=== PATIENT | female | born 1985 | race Caucasian/White ===

== ENCOUNTER → 2016-08-18 | Outpatient (CLI) | payer BC ==
--- NOTE | 2016-08-19 04:41 | REP ---
Clinical: Anatomical evaluation. Comparison: 05/21/2016 . Findings: Examination demonstrates a single live intrauterine in breech presentation. motion is identified by technologist. Placenta is noted anteriorly and grade one without evidence for placenta previa or abruption. Amniotic fluid volume is normal. Cervix measures 4.5 cm in length and appears closed. No evidence for nuchal cord. Gestational age by LMP 20 weeks 1 day with FELIZ 01/04/2017 . Gestational age by current measurements 20 weeks 5 days with FELIZ 12/31/2016 . FHR equals 163 beats per minute. BPD 4.9 cm 20 weeks 6 days HC 18.2 cm 20 weeks 4 days AC 15.9 cm 21 weeks 0 days FL 3.3 cm 20 weeks 3 days HL 3.4 cm 21 weeks 5 days HC/AC ratio 1.15 Estimated weight 375 grams grams ( 70th percentile). Anatomical assessment demonstrates normal structures including cranium, choroid plexus, cavum, cerebellum/posterior fossa, lungs, diaphragm, stomach, cord insertion/three-vessel cord, kidneys/bladder, spine, and extremities. Impression: 1. Single live intrauterine in breech presentation demonstrating appropriate interval growth. 2. Limited evaluation of the facial features and heart/ventricular outflow tracts may warrant reevaluation. Remainder of the anatomical assessment is complete and normal. Signed by Danny Mosher MD 08/19/2016 04:33 A
== END ==
LOC: M RAD 12:34
PROVIDERS: ATTEND Obstetrics & Gynecology
DX: Z34.82 Encounter for supervision of other normal pregnancy, second trimester (principal); Z36 Encounter for antenatal screening of mother; Z3A.20 20 weeks gestation of pregnancy

== ENCOUNTER → 2016-09-10 | Outpatient (CLI) | payer BC ==
--- NOTE | 2016-09-10 16:20 | REP ---
Obstetric ultrasound for anatomy: There is a single intrauterine gestation in a breech presentation. There is movement and cardiac activity. The heart rate is 153 beats per minute. The placenta is anterior. There is no placenta previa or abruptio. The placenta demonstrates grade 1 maturity. The amniotic fluid volume subjectively is normal. The cervix is 3.2 cm length. By the ultrasound today the gestational age is 24 weeks 4 days. FEILZ of 12/27/2016. By the first ultrasound during this gestation the gestational age is 23 weeks 6 days and by LMP and gestational age is 23-week 6 days. weight is 745 grams (1 pound, 10 ounces). This is the 92nd percentile for 23 weeks 3 days. The following anatomic structures are identified and are unremarkable: Cranium, choroid plexus, cavum, intracranial lateral ventricles, cerebellum, face, facial profile, upper lip, lungs, four-chamber heart, cardiac right and left ventricular outflow tracts, diaphragm, stomach, cord insertion, three-vessel cord, kidneys, bladder, spine and upper lower extremities. No anomalies are identified. Signed by Timothy Brewer MD 09/10/2016 04:12 P
== END ==
LOC: M RAD 13:55
PROVIDERS: ATTEND Obstetrics & Gynecology
DX: Z34.02 Encounter for supervision of normal first pregnancy, second trimester (principal); Z36 Encounter for antenatal screening of mother; Z3A.24 24 weeks gestation of pregnancy

== ENCOUNTER → 2016-10-01 | Outpatient (CLI) | payer BC ==
[2016-10-01 18:31] LABS: MEAN CORPUSCULAR HEMOGLOBIN 31.3 pg (27.0-33.0); MEAN CORPUSCULAR HGB CONC 34.8 g/dl (32.0-36.5); MEAN CORPUSCULAR VOLUME 89.7 fl (80.0-96.0); RED CELL DISTRIBUTION WIDTH 12.2 % (11.5-14.5); WHITE BLOOD COUNT 9.9 K/mm3 (4.0-10.0)
== END ==
LOC: M LAB 14:48
PROVIDERS: ATTEND Obstetrics & Gynecology
DX: Z34.02 Encounter for supervision of normal first pregnancy, second trimester (principal); Z36 Encounter for antenatal screening of mother

== ENCOUNTER → 2016-10-14 | Outpatient (CLI) | payer BC | LOC: M LAB 07:49 | PROVIDERS: ATTEND Obstetrics & Gynecology | DX: R73.02 Impaired glucose tolerance (oral) (principal) ==

== ENCOUNTER → 2016-12-08 | Outpatient (REF) | payer BC ==
[~2016-12-08] MED LIST: MOTR200T44 PO; PRENTAB9 PO; TYLE325T5 PO
== END ==
LOC: M LAB REF 16:33
PROVIDERS: ATTEND Obstetrics & Gynecology
DX: O24.410 Gestational diabetes mellitus in pregnancy, diet controlled (principal); Z3A.36 36 weeks gestation of pregnancy

== ENCOUNTER → 2016-12-15 | Outpatient (CLI) | payer BC ==
--- NOTE | 2016-12-16 00:50 | REP ---
Clinical: Growth evaluation. Comparison: 09/10/2016 . Findings: Examination demonstrates a single live intrauterine in cephalic presentation. motion is identified by technologist. Placenta is noted anteriorly and grade one without evidence for placenta previa or abruption. Amniotic fluid volume is normal. No evidence for nuchal cord. Gestational age by LMP 37 weeks 1 day with FELIZ 01/04/2017 . Gestational age by current measurements 38 weeks 4 days with FELIZ 12/25/2016 . FHR equals 144 beats per minute. BPD 9.3 cm 37 weeks 5 days HC 34.2 cm 39 weeks 3 days AC 35.8 cm 39 weeks 5 days FL 7.4 cm 37 weeks 6 days HL 6.5 cm 38 weeks 0 days HC/AC ratio 0.96 Estimated weight 3671 grams ( 88th percentile). Amniotic fluid index equals 9.7 cm (7.5 - 24.4). Impression: Single live advanced gestation in cephalic presentation assuring appropriate interval growth. No gross abnormalities are identified. Signed by Danny Mosher MD 12/16/2016 12:41 A
== END ==
LOC: M RAD 14:23
PROVIDERS: ATTEND Obstetrics & Gynecology
DX: O09.893 Supervision of other high risk pregnancies, third trimester (principal); O24.410 Gestational diabetes mellitus in pregnancy, diet controlled; Z3A.37 37 weeks gestation of pregnancy

== ENCOUNTER 2016-12-29 18:43 | Inpatient (IN) | payer BC ==
[2016-12-29] VITALS (29 sets, daily range): BP systolic 99–139; BP diastolic 51–74
[~2016-12-29] VITALS: Ht 154.9 cm; Wt 68.0 kg
[2016-12-29] MEDS ORDERED: PRENTAB9 PO (18:54)
[2016-12-29] MEDS ORDERED: LR 1,000 ML IV SCH (19:26)
[2016-12-29] MEDS ORDERED: LACTATED RINGER'S 1000 ML IV STA (19:26)
[2016-12-29] MEDS ORDERED: ONDANSETRON 4MG/2ML VIAL (J2405) IV ONE (19:30)
--- NOTE | 2016-12-29 20:10 | HPEPDOC ---
Obstetrical History & Physical General Date of Admission Dec 29, 2016 at 18:43 Primary Care Physician: NALINI MORSE CNM History of Present Illness Patient is a 31-year-old female who is a at 39 weeks 1 day with an FELIZ of 01/04/2017 based off her LMP and consistent with her first trimester ultrasound. She initiated care in her first trimester at [facility]. Her has been complicated by gestational diabetes, does been diet controlled. She presents to labor and delivery with complaints of contractions and nausea and vomiting. Her contractions started at 9 AM this morning and her nausea and vomiting started at 4 PM. She reports bloody show and active movement. She denies leaking of fluid. Chief Complaint: Contractions, term, Active Labor, Nausea and vomiting Information Provided By: Patient Age: 31 : 1 Livin Care Care: Good Care Number of Visits: 13 Dating Final EDC: Jan 04, 2017 Final EDC by: LMP LMP: Mar 30, 2016 EGA at Admission: 39.1 Antepartum Course Diagnos(e)s A1 GDM Height (inches): 61 Pre- weight (lbs.): 135 Admission Weight (lbs.): 160 Change in Weight (lbs.): 25 Past Medical History Past Obstetrical History : Past Obstetrical History: Primgravida [employer] TECHNICIAN History: Abnormal Pap, Other (HSG 02/19/16) Past Medical History Medical History Varicella as a child Surgical History: [place] teeth, Other (leep) Family History Significant Family History: Cancer (breast), Hypertension, Other (thyroid disease) Social History Social history Dental assistant manager retail Marital Status: Family situation: Spouse/partner home Psychosocial History: No pertinent psych hx * Smoker: non-smoker Alcohol: Denies Drugs: denies Abuse Violence Screening Have you been hit/kicked/slapp: No Have you been sexually assault: No Allergies Coded Allergies: No Known Allergies (Unverified , 12/29/16) Medications Scheduled Multivitamins/ ( 27-0.8 mg) 1 Tab Tab, 1 TAB PO DAILY Physical Examination Physical Examination GENERAL: Alert and oriented times three. BREAST: . ABDOMEN: Gravid and non-tender to touch. Palpation mild. FETUS: Is vertex (VTX) by sterile vaginal examination (SVE), fetus is vertex ( VTX) by Adalberto. EFW via Adalberto's is 3900 grams. HEART RATE: Regular rate and rhythm. LUNGS: Clear to auscultation (CTA). EXTREMITIES: Generalized edema noted bilaterally. Vital Signs/I&O Vital Signs Date Time Temp Pulse Resp B/P (MAP) Pulse Ox O2 Delivery O2 Flow Rate FiO2 12/29/16 19:03 99.0 76 20 122/70 (87) Room Air Laboratory Data 24H LABS Laboratory Tests 2 12/29/16 18:55: Serology Scanned Report Hepatitis B Testing Urine Culture: No Growth Pertinent Laboratoy Data Blood Type: A- RBC Antibody Screen: Negative HIV: Negative Hepatitis B: Negative Rapid Plasma Reagin: Nonreactive Rubella: Immune Chlamydia/Gonorrhea: Negative Group B Streptococcus: Negative Quad Screen Test: Declined Glucose Tolerance Test: 150 Anatomy Ultrasound Ultrasound Date: Dec 15, 2016 Normal Anatomy: Yes Placenta Previa: No Estimated Weight (grams): 3671 Vaginal Examination Dilation: 4 cm Effacement: Other (100%) Station: -2 Presentation: Cephalic presentation Position: Vertex (occiput) Assessment Heart Rate (FHR): 135 Variability: Moderate Accelerations: Positive Decelerations: None Tocometer Contractions: Yes Frequency: other (5 to 7 minutes) Strength: palpated as moderate Multi-drug resistant Organism: No history of MDRO Assessment/Plan Assessment IUP at 39.1 weeks gestation Active labor at term A1 GDM Category 1 heart rate tracing Nausea and vomiting Plan Admit to labor and delivery. Saline lock and labs per protocol. CMP and preeclamptic profile added to protocol labs due to an elevated BP of 140/82 in the office at today's visit. Out of bed ad clif. Clear liquid diet. Zofran as needed for nausea and vomiting. Lactated Ringer's bolus then 125 cc/hr. Anesthesia consult per patient's request. Dr. Valencia notified of patient being in department. Reviewed potential complications associated with GDM and labor to include but not limited to: LGA fetus, shoulder dystocia, hemorrhage, potential for section, vaginal tear/laceration, and potential complications to fetus. Anticipate cervical change and . NALINI MORSE CNM Dec 29, 2016 20:09
[2016-12-29 20:16] LABS: MEAN CORPUSCULAR HEMOGLOBIN 28.6 pg (27.0-33.0); MEAN CORPUSCULAR HGB CONC 34.2 g/dl (32.0-36.5); MEAN CORPUSCULAR VOLUME 83.6 fl (80.0-96.0); RED CELL DISTRIBUTION WIDTH 13.6 % (11.5-14.5); WHITE BLOOD COUNT 14.9 K/mm3 (4.0-10.0)
--- NOTE | 2016-12-29 20:35 | IPNPDOC ---
Date Seen The patient was seen on 12/29/16 AT 0830. Progress Note SUBJECTIVE: Patient received zofran and reports she does feel better and has not vomited since she received it. desires an epidural for pain management. OBJECTIVE: FHR 135, moderate variability, positive acceleration, no decelerations. Contractions every 4-6 minutes. SVE: 5/100/-1. ASSESSMENT: IUP at 39.1 wks, active labor, GDM-A1, Category I FHR tracing PLAN: Reviewed/reiterated Dr. Graves conversation with patient regarding fetus size and potential complications that could arise during labor. Patient verbalized understanding. Patient to receive epidural per request. Anticipate cervical change and . VS, I&O, 24H, Fishbone Vital Signs/I&O Vital Signs Date Time Temp Pulse Resp B/P (MAP) Pulse Ox O2 Delivery O2 Flow Rate FiO2 12/29/16 19:03 99.0 76 20 122/70 (87) Room Air Laboratory Data 24H LABS Laboratory Tests 2 12/29/16 18:55: Serology Scanned Report Hepatitis B Testing 12/29/16 19:40: CBC/BMP Laboratory Tests 12/29/16 19:40 Red Blood Count 3.87 L, Mean Corpuscular Volume 83.6, Mean Corpuscular Hemoglobin 28.6, Mean Corpuscular Hemoglobin Concent 34.2, Red Cell Distribution Width 13.6 NALINI MORSE CNM Dec 29, 2016 20:35
[2016-12-29 20:43] LABS: ALBUMIN 3.1 GM/DL (3.2-5.2); ALBUMIN/GLOBULIN RATIO 0.79 (1.00-1.93); ALKALINE PHOSPHATASE 177 U/L (45-117); ALT/SGPT 23 U/L (12-78); ANION GAP 11 MEQ/L (8-16); AST/SGOT 19 U/L (15-37); BILIRUBIN,TOTAL 0.3 MG/DL (0.2-1.0); BLOOD UREA NITROGEN 7 MG/DL (7-18); CALCIUM LEVEL 8.9 MG/DL (8.5-10.1); CARBON DIOXIDE LEVEL 21 MEQ/L (21-32); CHLORIDE LEVEL 103 MEQ/L (98-107); CREATININE FOR GFR 0.66 MG/DL (0.55-1.02); GLOMERULAR FILTRATION RATE > 60.0 (>60); GLUCOSE, FASTING 87 MG/DL (70-105); POTASSIUM SERUM 3.7 MEQ/L (3.5-5.1); SODIUM LEVEL 135 MEQ/L (136-145); URIC ACID 3.2 MG/DL (2.6-6.0)
[2016-12-29] MEDS ORDERED: OXYTOCIN 30 UNITS IN 0.9% NaCl 500ML IV BAG (J2590) As Ordered ONE (20:50)
[2016-12-29] MEDS ORDERED: FENTANYL 2MCG/ML ROPIVACAINE 0.2% IN 0.9% NACL 200ML IVBAG As Ordered ONE (20:50)
[2016-12-29] MEDS ORDERED: diphenhydrAMINE INJ 50MG/ML VIAL (J1200) IV PRN (21:29)
[2016-12-29] MEDS ORDERED: REFRIGERATOR IV KEYS XX PRN (21:29)
[2016-12-29] MEDS ORDERED: ONDANSETRON 4MG/2ML VIAL (J2405) IV PRN (21:29)
[2016-12-29] MEDS ORDERED: EPIDURAL COMMENT XX SCH (21:29)
[2016-12-29] MEDS ORDERED: NALOXONE INJ 0.4 MG/1 ML VIAL (J2310) IV PRN (21:29)
[2016-12-29] MEDS ORDERED: ePHEDrine SULFATE 25 MG/5 ML(5MG/ML) SYRINGE IV PRN (21:29)
[2016-12-29] MEDS ORDERED: EPIDURAL/PCA KEYS XX PRN (21:29)
[2016-12-29] MEDS ORDERED: LACTATED RINGER'S 1000 ML IV PRN (21:29)
[2016-12-29] MEDS ORDERED: FENTANYL/ROPIVACAINE/NACL BAG 200 ML EPIDURAL SCH (21:29)
[2016-12-29] MEDS ORDERED: OXYTOCIN DRIP 30 UNITS in APPROPRIATE DILUENT 1 EA IV SCH (22:30)
[2016-12-30] VITALS (13 sets, daily range): BP systolic 109–153; BP diastolic 56–74
[2016-12-30] MEDS ORDERED: OXYTOCIN DRIP 30 UNITS in APPROPRIATE DILUENT 1 EA IV SCH (01:49)
[2016-12-30] MEDS ORDERED: ANUSOL HC CREAM 30GM TOP PRN (02:00)
[2016-12-30] MEDS ORDERED: MEASLES,MUMPS,RUBELLA VACCINE INJ (MMR-II) (90707) SC SCH (02:00)
[2016-12-30] MEDS ORDERED: RHOGAM 300 MCG (1500 IU) INJ (J2790) IM SCH (02:00)
[2016-12-30] MEDS ORDERED: DIBUCAINE 1% OINTMENT 30GM TOP PRN (02:00)
[2016-12-30] MEDS ORDERED: DOCUSATE SODIUM 100 MG CAP PO PRN (02:00)
[2016-12-30] MEDS ORDERED: METHYLERGONOVINE MALEATE 0.2 MG TAB PO PRN (02:00)
[2016-12-30] MEDS ORDERED: ACETAMINOPHEN 500 MG TAB PO PRN (02:00)
--- NOTE | 2016-12-30 02:01 | DNPDOC ---
[facility] Delivery Note Delivery Note DATE OF DELIVERY: Dec 30, 2016 at 00:59 PROCEDURE: Spontaneous vaginal delivery. HYDRATOR OPERATOR: Nalini Willoughby CNM, RAGHAV ANESTHESIA: Epidural. ESTIMATED BLOOD LOSS: 350 mL. FINDINGS: 8 pound 9 ounces, 3870 grams, male , Score 9/9. DELIVERY SUMMARY: Tamiko is a 31-year-old female who is now a 001 at 39 weeks 2 days gestation. She had A1GDM. She presented to labor and delivery in active labor. It was noted when she spontaneously ruptured that she had light meconium. She received an epidural for pain management. Her labor was augmented with less than 2 milliunits of Pitocin. Tamiko became fully dilated at 0015 and pushed to a spontaneous vaginal delivery of a live male in the ELISA position with restitution to LOT at 0059. The anterior shoulder delivered with ease and the corpus immediately followed. The baby was placed on the maternal abdomen active and crying. The cord was clamped 2 and cut by the father of the baby after pulsation ceased. A three-vessel cord was noted. The placenta delivered at 0110 spontaneously and intact via Andino mechanism. Uterine hemostasis was achieved via fundal massage and rapid infusion of IV Pitocin. The perineum and vagina were inspected and found to have a second-degree perineal laceration and a periurethral abrasion. The second degree perineal laceration was repaired with a 3. [address]. Hemostasis was achieved. The baby score is 9/9. Weight is 3870 g, 8 lbs. 9 oz. the parents are naming their Isaias. Isaias is breast-feeding without difficulty. Mom and baby are in stable condition. NALINI WILLOUGHBY CNM Dec 30, 2016 02:01
[2016-12-30] MEDS: IBUPROFEN 800 MG TAB PO PRN ×2 (03:48→18:27)
[2016-12-30] MEDS: PRENATAL VITAMINS CHEWABLE TABLET PO SCH (08:29)
[2016-12-31 06:00] VITALS: BP 99/57
[2016-12-31] MEDS: IBUPROFEN 800 MG TAB PO PRN (06:43)
[2016-12-31] MEDS: PRENATAL VITAMINS CHEWABLE TABLET PO SCH (08:29)
[2016-12-31] MEDS ORDERED: ADACEL/BOOSTRIX VACCINE (DIPHTH/PERTUSS/ACELL/TETANUS)0.5ML SYR (90715) IM ONE (09:00)
[2016-12-31] MEDS ORDERED: MOTR200T44 PO (09:48)
[2016-12-31] MEDS ORDERED: TYLE325T5 PO (09:48)
== END 2016-12-31 10:52 | disposition home or self-care (01) | DRG 560 ==
LOC: M LDI 18:43 → M OBS 12-30 03:35
PROVIDERS: ADMIT Advanced Practice Midwife; ATTEND Advanced Practice Midwife
PROC: 10E0XZZ Delivery of Products of Conception, External Approach (ICD-10-PCS; principal; 2016-12-30)
PROC: 0KQM0ZZ Repair Perineum Muscle, Open Approach (ICD-10-PCS; 2016-12-30)
DX: O24.420 Gestational diabetes mellitus in childbirth, diet controlled (principal); O77.0 Labor and delivery complicated by meconium in amniotic fluid; Z37.0 Single live birth; Z3A.39 39 weeks gestation of pregnancy; Z80.3 Family history of malignant neoplasm of breast; Z82.49 Family history of ischemic heart disease and other diseases of the circulatory system; Z83.49 Family history of other endocrine, nutritional and metabolic diseases; O70.1 Second degree perineal laceration during delivery; Z79.899 Other long term (current) drug therapy

== ENCOUNTER → 2018-10-04 | Outpatient (CLI) | payer BC ==
[2018-10-04 19:25] LABS: BASO % 0.3 % (0.0-1.0); EOS # 0.1 10^3/uL (0.0-0.50); EOS % 0.6 % (0.0-3.0); HEMATOCRIT 36.9 % (36.0-47.0); HEMOGLOBIN 12.5 g/dl (12.0-15.5); LYMPH # 2.1 10^3/uL (1.5-4.5); LYMPH % 23.6 % (24.0-44.0); MEAN CORPUSCULAR HGB CONC 33.9 g/dl (32.0-36.5); MEAN CORPUSCULAR VOLUME 88.7 fl (80.0-96.0); MONO # 0.9 10^3/uL (0.0-0.8); MONO % 9.6 % (0.0-5.0); NEUTROPHILS # 5.8 10^3/uL (1.8-7.7); NEUTROPHILS % 65.7 % (36.0-66.0); PLATELET COUNT, AUTOMATED 277 10^3/uL (150-450); RED BLOOD COUNT 4.16 10^6/uL (4.00-5.40); WHITE BLOOD COUNT 8.8 10^3/uL (4.0-10.0)
[2018-10-04 21:49] LABS: CHLAMYDIA DNA AMPLIFICATION NEGATIVE (NEGATIVE); GC DNA AMPLIFICATION NEGATIVE (NEGATIVE)
[2018-10-06 13:22] LABS: HEPATITIS C VIRUS ABY INDEX < 0.0 INDEX (<0.8); HIV 1&2 SCREEN CENTAUR NEGATIVE (NEGATIVE); RUBELLA IgG QUALITATIVE IMMUNE (IMMUNE)
== END ==
LOC: M WUC 16:21
PROVIDERS: ATTEND Advanced Practice Midwife
DX: Z34.81 Encounter for supervision of other normal pregnancy, first trimester (principal); Z3A.00 Weeks of gestation of pregnancy not specified

== ENCOUNTER → 2018-11-10 | Outpatient (CLI) | payer BC | LOC: M WUC 16:25 | PROVIDERS: ATTEND Advanced Practice Midwife | DX: Z36.89 Encounter for other specified antenatal screening (principal) ==

== ENCOUNTER → 2018-12-03 | Outpatient (CLI) | payer BC ==
--- NOTE | 2018-12-03 20:04 | REP ---
Clinical: Anatomical evaluation. Comparison: None . Findings: Examination demonstrates a single live intrauterine in cephalic presentation. motion is identified by technologist. Placenta is noted posterior and grade zero without evidence for placenta previa or abruption. Amniotic fluid volume is normal. Cervix measures 4.1 cm in length and appears closed. No evidence for nuchal cord. Gestational age by LMP 18 weeks 6 days with FELIZ 04/30/2019 . Gestational age by current measurements 19 weeks 4 days with FELIZ 04/25/2019 . FHR equals 157 beats per minute. BPD 4.5 cm 19 weeks 3 days HC 16.0 cm 18 weeks 6 days AC 15.4 cm 20 weeks 4 days FL 3.0 cm 19 weeks 3 days HL 3.0 cm 19 weeks 5 days HC/AC ratio 1.04 Estimated weight 318 grams ( 85th percentile). Anatomical assessment demonstrates normal structures including cranium, choroid plexus, cavum, cerebellum/posterior fossa, lungs, four-chamber heart/ventricular outflow tracts, diaphragm, stomach, cord insertion/three-vessel cord, kidneys/bladder, spine, and extremities. Impression: Single live intrauterine in cephalic presentation demonstrating appropriate interval growth. Limited evaluation of the facial features noted. Remainder of the anatomical assessment is complete and normal. Electronically Signed by Danny Mosher MD 12/03/2018 07:55 P
== END ==
LOC: M RAD 16:08
PROVIDERS: ATTEND Advanced Practice Midwife
DX: Z34.82 Encounter for supervision of other normal pregnancy, second trimester (principal); Z3A.19 19 weeks gestation of pregnancy

== ENCOUNTER → 2019-02-04 | Outpatient (CLI) | payer BC ==
[~2019-02-04] MED LIST changes: +ACET-683 PO; +IBUP80TA PO; +METF-839 PO
[2019-02-04 08:50] LABS: HEMATOCRIT 31.2 % (36.0-47.0); HEMOGLOBIN 10.5 g/dl (12.0-15.5); MEAN CORPUSCULAR HEMOGLOBIN 30.9 pg (27.0-33.0); MEAN CORPUSCULAR HGB CONC 33.7 g/dl (32.0-36.5); MEAN CORPUSCULAR VOLUME 91.8 fl (80.0-96.0); PLATELET COUNT, AUTOMATED 228 10^3/uL (150-450); WHITE BLOOD COUNT 7.1 10^3/uL (4.0-10.0)
== END ==
LOC: M LAB 08:04
PROVIDERS: ATTEND Advanced Practice Midwife
DX: Z34.82 Encounter for supervision of other normal pregnancy, second trimester (principal); Z3A.00 Weeks of gestation of pregnancy not specified
CPT/HCPCS: 36415; 82951; 82952; 85027; 86850; J2790

== ENCOUNTER → 2019-03-11 | Outpatient (CLI) | payer BC ==
[~2019-03-11] MED LIST changes: -ACET-683 PO; -IBUP80TA PO; -METF-839 PO
--- NOTE | 2019-03-11 19:14 | REP ---
OB ULTRASOUND: Real-time sonographic evaluation of the gravid uterus is performed. There is a single living intrauterine gestation. The estimated gestational age is 32 weeks 6 days. EDC 04/30/2019. Today's measurements indicate appropriate growth. BPD 83 mm 33 weeks 2 days, 55th percentile. HC 298 mm 33 weeks 0 days, 51st percentile. AC 300 mm 34 weeks 0 days 65th percentile. Femur length 60 mm 32 weeks 1 day, 24th percentile. HC/AC ratio 0.99 within normal range. Estimated weight 2092 46th percentile. Cervix is closed and measures 2.9 cm in length. heart rate 152 beats per minute. Amniotic fluid within normal limits. ESTEFANIA 15.2 with a normal range of 8.3 to 24.5. SD ratio 3.19 is above normal range of 2.05 to 3.05. RI 0.69 is within normal range of 0.59 to 0.75. Visualized anatomy includes upper lip, ventricular outflow tracts, stomach, three vessel cord, kidneys, bladder and spine which are all grossly unremarkable. position is vertex. Placenta is posterior and grade 0 with no previa or abruption. Electronically Signed by Timothy Zapata MD 03/14/2019 11:19 P
== END ==
LOC: M RAD 14:06
PROVIDERS: ATTEND Advanced Practice Midwife
DX: O24.415 Gestational diabetes mellitus in pregnancy, controlled by oral hypoglycemic drugs (principal)

== ENCOUNTER → 2019-04-01 | Outpatient (CLI) | payer BC ==
--- NOTE | 2019-04-01 21:57 | REP ---
OB ULTRASOUND: Real-time sonographic evaluation of the gravid uterus performed. There is a single living intrauterine gestation, estimated gestational age 35 weeks 6 days, EDC 04/30/2019. Today's measurements indicate appropriate growth. BPD 89 mm = 35 weeks 6 days, 50th percentile HC 312 mm = 35 weeks 0 days, 36th percentile AC 320 mm = 36 weeks 0 days, 51st percentile FL 66 mm = 34 weeks 0 days, 21st percentile HC/AC ratio 0.98, within normal range. Estimated weight 2650 grams, 40th percentile. heart rate 153 beats per minute. Amniotic fluid within normal limits. ESTEFANIA 14.5, within normal range of 7.7 to 24.9. S/D ratio 2.68, within normal range of 2.0 to 3.0. RI 0.63, within normal range of 0.59 to 0.75. Visualized anatomy today includes four chamber heart, stomach, kidneys and bladder which are all grossly unremarkable. position vertex. Placenta is posterior and grade 2 with no previa or abruption. Electronically Signed by Timothy Zapata MD 04/02/2019 03:36 P
== END ==
LOC: M RAD 13:56
PROVIDERS: ATTEND Advanced Practice Midwife
DX: O24.415 Gestational diabetes mellitus in pregnancy, controlled by oral hypoglycemic drugs (principal); Z3A.35 35 weeks gestation of pregnancy

== ENCOUNTER → 2019-04-08 | Outpatient (CLI) | payer BC | LOC: M WUC 15:06 | PROVIDERS: ATTEND Advanced Practice Midwife | DX: O24.415 Gestational diabetes mellitus in pregnancy, controlled by oral hypoglycemic drugs (principal); Z3A.35 35 weeks gestation of pregnancy ==

== ENCOUNTER 2019-04-18 08:37 | Inpatient (IN) | payer BC ==
[2019-04-18] VITALS (37 sets, daily range): BP systolic 95–136; BP diastolic 53–82
[~2019-04-18] VITALS: Ht 152.4 cm; Wt 71.4 kg
[2019-04-18] MEDS ORDERED: METF-839 PO (08:56)
[2019-04-18] MEDS ORDERED: PENICILLIN G POTASSIUM IV 5 MU in D5W MINI-BAG PLUS 100 ML IV STA (09:00)
[2019-04-18 09:49] LABS: HEMATOCRIT 29.4 % (36.0-47.0); HEMOGLOBIN 9.8 g/dl (12.0-15.5); MEAN CORPUSCULAR HEMOGLOBIN 28.7 pg (27.0-33.0); MEAN CORPUSCULAR HGB CONC 33.3 g/dl (32.0-36.5); PLATELET COUNT, AUTOMATED 216 10^3/uL (150-450); RED BLOOD COUNT 3.42 10^6/uL (4.00-5.40); WHITE BLOOD COUNT 5.8 10^3/uL (4.0-10.0)
--- NOTE | 2019-04-18 09:59 | HPEPDOC ---
Obstetrical History & Physical General Date of Admission Apr 18, 2019 at 08:37 Primary Care Physician: NALINI MORSE CNM History of Present Illness Patient is a 33-year-old female who is a at 38.2 weeks gestation with an FELIZ of 04/30/2019 based off of her LMP and consistent with her first trimester ultrasound. She initiated care with [facility] in her first trimester of . Her has been complicated by A2GDM, which she is using Metformin to help control. She presents to L&D for an IOL due to A2GDM. She rep orts occasional contractions and active movement. She denies leaking of fluid or vaginal bleeding. Chief Complaint: Other (gestational diabetes) Information Provided By: Patient Age: 33 : 2 Term: 1 Pre-term: 0 Abortions: 0 Livin Care Care: Good Care Dating Final EDC: Apr 30, 2019 Final EDC by: LMP LMP: Jul 24, 2018 EGA at Admission: 38.2 Antepartum Course Diagnos(e)s A2GDM Height (inches): 60 Pre- weight (lbs.): 148 Admission Weight (lbs.): 158 Change in Weight (lbs.): 10 Past Medical History Past Obstetrical History : Past Obstetrical History: Primgravida Gestation: 39 Type of Delivery: Spontaneous Vaginal Del. (December 2016) Sex of : Male (weight 8 lbs 9 oz) Complications: Yes (A1GDM) Social History Marital Status: Psychosocial History: No pertinent psych hx * Smoker: non-smoker Alcohol: Denies Drugs: denies Abuse Violence Screening Have you been hit/kicked/slapp: No Have you been sexually assault: No Imunizations Tdap status: current Influenza Status: current Allergies Coded Allergies: No Known Allergies (Unverified , 12/29/16) Medications Scheduled Metformin HCl (Metformin HCl) 500 Mg Tablet, 500 MG PO DAILY No.137/Iron/Folic Acd ( Vitamin Tablet) 1 Tab Tab, 1 TAB PO DAILY Physical Examination Physical Examination GENERAL: Alert and oriented times three. BREAST: . ABDOMEN: Gravid and non-tender to touch. FETUS: Is vertex (VTX) by sterile vaginal examination (SVE), fetus is vertex (VTX) by Adalberto. HEART RATE: Regular rate and rhythm. LUNGS: Clear to auscultation (CTA). EXTREMITIES: No edema. No clonus. Deep tendon reflexes (DTRs) + 2. Vital Signs/I&O Vital Signs Date Time Temp Pulse Resp B/P (MAP) Pulse Ox O2 Delivery O2 Flow Rate FiO2 04/18/19 08:52 98.2 76 18 119/76 (90) Laboratory Data 24H LABS Laboratory Tests 2 04/18/19 09:19: Serology Scanned Report Hepatitis B Testing 04/18/19 09:36: CBC/BMP Urine Culture: No Growth Pertinent Laboratoy Data Blood Type: A- RBC Antibody Screen: Negative HIV: Negative Hepatitis B: Negative Hepatitis C: Negative Rapid Plasma Reagin: Nonreactive Rubella: Immune Chlamydia/Gonorrhea: Negative Group B Streptococcus: Positive Diag/Inter Therapy NIPT: low risk Female Anatomy Ultrasound Ultrasound Date: Apr 01, 2019 Placenta Location: Posterior Normal Anatomy: Yes Placenta Previa: No Estimated Weight (grams): 2650 Vaginal Examination Dilation: 2cm Effacement: other (75%) Station: -2 Cervical Consistency: Soft Presentation: Cephalic presentation Position: Vertex (occiput) Assessment Heart Rate (FHR): 135 Variability: Moderate Accelerations: Positive Decelerations: None Tocometer Contractions: Yes Frequency: other (4-8 minutes) Assessment/Plan Assessment IUP at 38.2 weeks gestation A2GDM Category I FHR tracing GBS positive Plan Admit to labor and delivery. OOB ad clif Diet: regular then switch to clear liquid diet . Group B Streptococcus (GBS) positive. Start antibiotics per order. Labs and intravenous (IV) per unit protocol. Counseled on cytotec and Pitocin for induction of labor. Anesthesia consult per patient's request. Lactated Ringers (LR): Bolus 800 mL prior to epidural, then at 125 mL/hr. Anticipate cervical ripening and cervical change. NALINI MORSE CNM Apr 18, 2019 09:59
[2019-04-18] MEDS ORDERED: miSOPROStol 50 MCG 1/2 TAB (S0191) PO ONE (10:15)
[2019-04-18] MEDS: PENICILLIN G POTASSIUM IV 2.5 MU in IV 1 EA IV SCH ×2 (13:48→17:54)
[2019-04-18] MEDS ORDERED: LR 1,000 ML IV SCH (14:06)
[2019-04-18] MEDS ORDERED: OXYTOCIN DRIP 30 UNITS in IV 1 EA IV SCH ×2 (14:15→22:34)
--- NOTE | 2019-04-18 18:35 | IPNPDOC ---
Obstetrical Progress Note Date of Service Apr 18, 2019 Subjective Patient reports she does feel her contractions and reports them as tolerable. Objective Vital Signs Date Time Temp Pulse Resp B/P (MAP) Pulse Ox O2 Delivery O2 Flow Rate FiO2 04/18/19 17:28 65 17 115/74 (88) 04/18/19 17:00 97.8 Assessment Heart Rate (FHR): 130 Variability: Moderate Accelerations: Positive Decelerations: None Heart Rate Tracing: Category I Tocometer Contractions: Yes Frequency: regular Sterile Vaginal Examination Dilation: 4 cm Effacement (%): 80% Station: -1 Cervical Consistency: Soft Cervical Position: Anterior Postion/Presentation: Cephalic presentation Assessment and Plan Age: 33 : 2 Term: 1 Pre-term: 0 Abortions: 0 Livin EGA at Admission: 38.2 Status: Reassuring Group B Streptococcus: Positive Anticipate: Vaginal Delivery Additional Comments IV Pitocin is at 12 mu/min. AROM to a moderate amount of clear fluid. NALINI MORSE CNM Apr 18, 2019 18:35
[2019-04-18] MEDS ORDERED: FENTANYL 2MCG/ML ROPIVACAINE 0.2% IN 0.9% NACL 100ML IVBAG As Ordered ONE (19:22)
[2019-04-18] MEDS ORDERED: FENTANYL/ROPIVACAINE/NACL BAG 100 ML EPIDURAL SCH (20:31)
[2019-04-18] MEDS ORDERED: ONDANSETRON 4MG/2ML VIAL (J2405) IV PRN (20:31)
[2019-04-18] MEDS ORDERED: diphenhydrAMINE INJ 50MG/ML VIAL (J1200) IV PRN (20:31)
[2019-04-18] MEDS ORDERED: EPIDURAL COMMENT XX SCH (20:31)
[2019-04-18] MEDS ORDERED: EPIDURAL/PCA KEYS XX PRN (20:31)
[2019-04-18] MEDS ORDERED: NALOXONE INJ 0.4 MG/1 ML VIAL (J2310) IV PRN (20:31)
[2019-04-18] MEDS ORDERED: LACTATED RINGER'S 1000 ML IV PRN (20:31)
[2019-04-18] MEDS ORDERED: REFRIGERATOR IV KEYS XX PRN (20:31)
[2019-04-18] MEDS: ePHEDrine SULFATE 25 MG/5 ML(5MG/ML) SYRINGE IV PRN ×3 (21:26→21:44)
[2019-04-18] MEDS ORDERED: RHOGAM 300 MCG (1500 IU) INJ (J2790) IM SCH (22:45)
[2019-04-18] MEDS ORDERED: MEASLES,MUMPS,RUBELLA VACCINE INJ (MMR-II) (90707) SC SCH (22:45)
[2019-04-18] MEDS ORDERED: IBUPROFEN 600 MG TAB PO PRN (22:45)
[2019-04-18] MEDS ORDERED: METHYLERGONOVINE MALEATE 0.2 MG/ML VIAL (J2210) IM PRN (22:45)
[2019-04-18] MEDS ORDERED: METHYLERGONOVINE MALEATE 0.2 MG TAB PO PRN (22:45)
[2019-04-18] MEDS ORDERED: ACETAMINOPHEN TAB 650MG DOSE (2X325MG) PO PRN (22:45)
[2019-04-18] MEDS ORDERED: DOCUSATE SODIUM 100 MG CAP PO PRN (22:45)
[2019-04-18] MEDS ORDERED: ACETAMINOPHEN 500 MG TAB PO PRN (22:45)
[2019-04-18] MEDS ORDERED: DIBUCAINE 1% OINTMENT 30GM TOP PRN (22:45)
[2019-04-18] MEDS ORDERED: ANUSOL HC CREAM 30GM TOP PRN (22:45)
--- NOTE | 2019-04-18 22:47 | DNPDOC ---
[facility] Delivery Note Delivery Note DATE OF DELIVERY: 04/18/2019 at 2207 PREDELIVERY DIAGNOSIS: 38-2/7 weeks' gestation and labor. POST DELIVERY DIAGNOSIS: Delivered. PROCEDURE: Spontaneous vaginal delivery. PROVIDER: Nalini Willoughby CNM, RAGHAV ANESTHESIA: epidural. ESTIMATED BLOOD LOSS: 400 mL. FINDINGS: 8 pounds 1 ounce; 3650 grams; female , Score 8/9, A2GDM. DELIVERY SUMMARY: Patient is a 33-year-old female who is now a at 38.2 weeks gestation who presented for an IOL for A2GDM. She received 1 dose of Cytotec and IV Pitocin for induction and an epidural for pain management. The patient progressed to fully dilated at 2151 and pushed to living female in the GEO position with restitution to ROT. The anterior shoulder delivered with ease and the corpus immediately followed. The baby was placed on the maternal abdomen active and crying with stimulation. The cord was clamped x2 after 2 minutes and cut by the FOB. A 3-vessel cord was noted. The placenta delivered spontaneously and intact at 2212. uterine hemostasis was achieved via rapid infusion of IV Pitocin and fundal massage. The vagina, perineum and cervix was inspected and found to have a 1st degree perineal laceration. The laceration was repaired with a 3.0 Vicryl Rapide. Mom plans to breastfeed. They are naming their daughter Mariaelena. Both mom and baby are in stable condition. All counts of instruments and sponges are correct. NALINI WILLOUGHBY CNM Apr 18, 2019 22:47
[2019-04-19] MEDS: IBUPROFEN 800 MG TAB PO PRN ×3 (00:09→18:33)
[2019-04-19 00:37] VITALS: BP 97/53
[2019-04-19 05:47] VITALS: BP 94/50
--- NOTE | 2019-04-19 07:52 | IPNPDOC ---
Progress Note Date of Service: Apr 19, 2019 Day#: 1 Progress Note SUBJECT: She has been ambulating, voiding spontaneously without issue and tolerating regular diet.Reports lochia is like a normal period. Patient is ambulating well. Reports some cramping with . OBJECTIVE: VITAL SIGNS: Within normal limits, afebrile. Alert and oriented times three. Breath sounds clear to auscultation. Heart rate: Regular rate and rhythm, no murmurs, rubs or gallops. Abdomen: Fundus firm at U-1. Soft, NTTP. Moderate lochia. ASSESSMENT: Day 1 PLAN: 1. Continue supportive nursing care. 2. Anticipate discharge tomorrow. VS, I&O, 24H, Fishbone Vital Signs/I&O Vital Signs Date Time Temp Pulse Resp B/P (MAP) Pulse Ox O2 Delivery O2 Flow Rate FiO2 04/19/19 05:47 98.7 68 17 94/50 (65) I&O- Last 24 Hours up to 6 AM 04/19/19 06:00 Intake Total 1951.5 ml Output Total 1200 ml Balance 751.5 ml Laboratory Data 24H LABS Laboratory Tests 2 04/18/19 09:19: Serology Scanned Report Hepatitis B Testing 04/18/19 09:36: Nucleated Red Blood Cells % (auto) 0.0, Syphilis Serology NONREACTIVE 04/18/19 09:53: Bedside Glucose (Misc Panel) 73 CBC/BMP Laboratory Tests 04/18/19 09:36 NALINI MORSE CNM Apr 19, 2019 07:52
[2019-04-19] MEDS: PRENATAL VITAMINS CHEWABLE TABLET PO SCH (08:25)
[2019-04-19 18:23] VITALS: BP 120/68
[2019-04-20 06:00] VITALS: BP 116/69
[2019-04-20] MEDS ORDERED: ACET-683 PO (07:50)
[2019-04-20] MEDS ORDERED: IBUP80TA PO (07:50)
[2019-04-20] MEDS: PRENATAL VITAMINS CHEWABLE TABLET PO SCH (08:18)
== END 2019-04-20 11:00 | disposition home or self-care (01) | DRG 560 ==
LOC: M LDI 08:37 → M OBS 04-19 00:30
PROVIDERS: ADMIT Advanced Practice Midwife; ATTEND Advanced Practice Midwife
PROC: 10E0XZZ Delivery of Products of Conception, External Approach (ICD-10-PCS; principal; 2019-04-18)
PROC: 0HQ9XZZ Repair Perineum Skin, External Approach (ICD-10-PCS; 2019-04-18)
PROC: 3E033VJ Introduction of Other Hormone into Peripheral Vein, Percutaneous Approach (ICD-10-PCS; 2019-04-18)
DX: O24.425 Gestational diabetes mellitus in childbirth, controlled by oral hypoglycemic drugs (principal); O99.820 Streptococcus B carrier state complicating pregnancy; Z37.0 Single live birth; Z3A.38 38 weeks gestation of pregnancy; O70.0 First degree perineal laceration during delivery

== ENCOUNTER → 2019-07-29 | Outpatient (CLI) | payer BC ==
[~2019-07-29] MED LIST changes: +ACET-683 PO; +IBUP80TA PO; +METF-839 PO
== END ==
LOC: M LAB 09:39
PROVIDERS: ATTEND Advanced Practice Midwife
DX: Z86.32 Personal history of gestational diabetes (principal)

== ENCOUNTER → 2021-06-28 | Outpatient (CLI) | payer BC | LOC: M PLALAB 10:47 | PROVIDERS: ATTEND Advanced Practice Midwife | DX: Z12.4 Encounter for screening for malignant neoplasm of cervix (principal); R87.610 Atypical squamous cells of undetermined significance on cytologic smear of cervix (ASC-US); B37.3 Candidiasis of vulva and vagina; Z86.32 Personal history of gestational diabetes ==

== ENCOUNTER → 2022-11-27 | Outpatient (CLI) | payer BC ==
[2022-11-27 16:08] LABS: ALBUMIN 4.3 G/DL (3.2-5.2); ALKALINE PHOSPHATASE 40 U/L (46-116); ALT/SGPT 14 U/L (7.0-40); AST/SGOT 11 U/L (<34); BILIRUBIN,TOTAL 0.6 MG/DL (0.3-1.2); BLOOD UREA NITROGEN 8 MG/DL (9-23); CALCIUM LEVEL 8.6 MG/DL (8.5-10.1); CARBON DIOXIDE LEVEL 28 MMOL/L (20-31); CHLORIDE LEVEL 105 MMOL/L (98-107); CHOLESTEROL LEVEL 162 MG/DL (<200); CHOLESTEROL RISK RATIO 2.42 (<5); CREATININE FOR GFR 0.72 MG/DL (0.55-1.30); GLOMERULAR FILTRATION RATE > 60.0 (>60); GLUCOSE, FASTING 92 MG/DL (60-100); HDL CHOLESTEROL 66.8 MG/DL (>40); LDL CHOLESTEROL 85.2 MG/DL (<100); NON-HDL-C 95.2 MG/DL; POTASSIUM SERUM 4.1 MMOL/L (3.5-5.1); SODIUM LEVEL 139 MMOL/L (136-145); TRIGLYCERIDES LEVEL 50 MG/DL (<150)
[2022-11-27 16:10] LABS: FREE T4 1.11 NG/DL (0.89-1.76); THYROID STIMULATING HORMONE 0.707 uIU/ML (0.55-4.78)
[2022-11-27 16:20] LABS: HEMATOCRIT 34.9 % (36.0-47.0); HEMOGLOBIN 11.4 g/dl (12.0-15.5); MEAN CORPUSCULAR HEMOGLOBIN 28.1 pg (27.0-33.0); MEAN CORPUSCULAR HGB CONC 32.7 g/dl (32.0-36.5); MEAN CORPUSCULAR VOLUME 86.2 fl (80.0-96.0); PLATELET COUNT, AUTOMATED 289 10^3/uL (150-450); RED BLOOD COUNT 4.05 10^6/uL (4.00-5.40); WHITE BLOOD COUNT 5.4 10^3/uL (4.0-10.0)
[2022-11-27 16:41] LABS: HEMOGLOBIN A1c 4.8 % (4.0-6.0)
== END ==
LOC: M PLALAB 12:14
PROVIDERS: ATTEND Advanced Practice Midwife
DX: Z01.419 Encounter for gynecological examination (general) (routine) without abnormal findings (principal); Z86.32 Personal history of gestational diabetes

== ENCOUNTER → 2023-05-04 | Outpatient (CLI) | payer BC | LOC: M WHC 12:47 | PROVIDERS: ATTEND Advanced Practice Midwife | DX: N92.0 Excessive and frequent menstruation with regular cycle (principal); N83.201 Unspecified ovarian cyst, right side ==

== ENCOUNTER → 2024-09-15 | Outpatient (REF) | payer BC | LOC: M PLALAB 11:03 | PROVIDERS: ATTEND Advanced Practice Midwife | DX: Z12.4 Encounter for screening for malignant neoplasm of cervix (principal); Z11.51 Encounter for screening for human papillomavirus (HPV) ==

== ENCOUNTER → 2024-09-15 | Outpatient (CLI) | payer BC ==
[2024-09-15 15:54] LABS: HEMATOCRIT 36.9 % (36.0-47.0); HEMOGLOBIN 12.1 g/dl (12.0-15.5); MEAN CORPUSCULAR HEMOGLOBIN 28.5 pg (27.0-33.0); MEAN CORPUSCULAR HGB CONC 32.8 g/dl (32.0-36.5); MEAN CORPUSCULAR VOLUME 86.8 fl (80.0-96.0); PLATELET COUNT, AUTOMATED 251 10^3/uL (150-450); RED BLOOD COUNT 4.25 10^6/uL (4.00-5.40); WHITE BLOOD COUNT 7.8 10^3/uL (4.0-10.0)
[2024-09-15 16:28] LABS: ALBUMIN 4.1 G/DL (3.2-5.2); ALKALINE PHOSPHATASE 44 U/L (35-104); ALT/SGPT 46 U/L (7.0-40); AST/SGOT 24 U/L (<34); BILIRUBIN,TOTAL 0.5 MG/DL (0.3-1.2); BLOOD UREA NITROGEN 11 MG/DL (9-23); CARBON DIOXIDE LEVEL 28 MMOL/L (20-31); CHLORIDE LEVEL 104 MMOL/L (98-107); CREATININE FOR GFR 0.75 MG/DL (0.55-1.30); GLOMERULAR FILTRATION RATE > 90.0 (>60); GLUCOSE, FASTING 86 MG/DL (60-100); POTASSIUM SERUM 4.5 MMOL/L (3.5-5.1); SODIUM LEVEL 139 MMOL/L (136-145); TOTAL PROTEIN 7.1 G/DL (5.7-8.2)
[2024-09-15 16:30] LABS: FREE T4 1.22 NG/DL (0.89-1.76); THYROID STIMULATING HORMONE 0.673 uIU/ML (0.55-4.78)
[2024-09-15 16:32] LABS: HEMOGLOBIN A1c 4.5 % (4.0-6.0)
[2024-09-17 16:03] LABS: HPV APTIMA Not Detected (Not Detected)
== END ==
LOC: M PLALAB 11:44
PROVIDERS: ATTEND Advanced Practice Midwife
DX: Z12.4 Encounter for screening for malignant neoplasm of cervix (principal); Z11.51 Encounter for screening for human papillomavirus (HPV); Z86.32 Personal history of gestational diabetes